=== PATIENT | female | born 2000 | race Hispanic/Latino ===

== ENCOUNTER 2018-06-29 03:19 | Inpatient (IN) | payer OTHER ==
[2018-06-29] MEDS ORDERED: MINERAL OIL PO PRN (05:14)
[2018-06-29] MEDS ORDERED: BRETHINE IVP PRN (05:14)
[2018-06-29] MEDS ORDERED: BRETHINE SUB-Q PRN (05:14)
[2018-06-29] MEDS ORDERED: XYLOCAINE 2% INFILTRATI ONE (05:14)
--- NOTE | 2018-06-29 05:23 | Ultrasound Report ---
PROCEDURE: US OB LIMITED TECHNIQUE: A limited OB sonogram was obtained for evaluation of the MARTHA. HISTORY: MARTHA COMPARISONS: 06/20/2018 FINDINGS: The MARTHA is 6.0 which is decreased. The fetus is in cephalic presentation. The heart rate is 148 BPM. The placenta is along the left lateral wall and is grade 2. IMPRESSION: MARTHA is 6.0 consistent with oligohydramnios. On the previous study of 06/21/2018 was 12.7 which is norm al.. Cephalic presentation. The heart rate is 148 BPM. This document is electronically signed by Steve Wells MD., June 29 2018 05:21:51 AM ET
[2018-06-29] MEDS ORDERED: SUBLIMAZE IV ONE (05:30)
[2018-06-29 05:50] LABS: Hematocrit 34.7 % (30.3-42.9); Hemoglobin 11.5 gm/dl (10.1-14.3); Mean Corpuscular HGB Conc 33 % (30-34); Mean Corpuscular Volume 85 fl (79-97); Platelet Count 187 K/mm3 (140-440); Red Blood Count 4.09 M/mm3 (3.65-5.03); Red Cell Distribution Width 16.2 % (13.2-15.2)
[2018-06-29] MEDS: LACTATED RINGERS 1,000 ML IV SCH ×5 (06:04→15:51)
--- NOTE | 2018-06-29 06:18 | History and Physical Report ---
History of Present Illness Date of examination: 06/29/18 Chief complaint: contractions and SROM History of present illness: EDC Calculations LMP: 07/07/2018 Past History : 1 Past Medical History: Scoliosis Past Medical History Social Hx: Patient is single Smoking History: Patient has never smoked. Infection History Hx of STD: none Varicella/Chicken Pox Status: Immunized TB Risk: no Genetic History Congenital Heart Defect: Mom: no Dad: no Faisal Disease: Mom: no Dad: no Thalassemia Mom: no Dad: no Neural Tube Defect Mom: yes Dad: no Comments: 1st cousin Spinda Bifida Down's Syndrome Mom: no Dad: no Ernst-Sachs Mom: no Dad: no Sickle Cell Disease/Trait Mom: no Dad: no Hemophilia Mom: no Dad: no Muscular Dystrophy Mom: no Dad: no Cystic Fibrosis Mom: no Dad: no Clayton Chorea Mom: no Dad: no Mental Retardation Mom: no Dad: no Fragile X Mom: no Dad: no Other Genetic/Chromosomal Disorder Mom: no Dad: no Child w/other defect Mom: no Dad: no Enviromental Exposures Enviromental Exposures Reviewed Xray Exposure: no Medication, drug, or alcohol use since LMP: no Chemical/Other Exposure: no Exposure to Cat Liter: no Hx of Parvovirus (Fifth Disease): yes 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: daycare Active Medications: PLUS 27-1 MG ORAL TABLET ( VIT-FE FUMARATE-FA) 1 po daily Current Allergies: No known allergies Past History Past Medical History: other (see HPI) Past Surgical History: other (see HPI) 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) Family/Genetic History: other (see HPI) - Obstetrical History Expected Date of Delivery: 07/07/18 Actual Gestation: 38 Week(s) 6 Day(s) : 1 Para: 0 Hx # Term Pregnancies: 0 Number of Pregnancies: 0 Spontaneous Abortions: 0 Induced : 0 Number of Living Children: 0 Medications and Allergies Allergies Allergy/AdvReac Type Severity Reaction Status Date / Time No Known Allergies Allergy Verified 06/20/18 18:08 Active Meds: Active Medications Ephedrine Sulfate (Ephedrine Sulfate) 10 mg IV Q2M PRN PRN Reason: Hypotension Lactated Ringer's (Lactated Ringers) 1,000 mls @ 125 mls/hr IV DIRECT ELSIE Last Admin: 06/29/18 06:04 Dose: 125 mls/hr Documented by: Oxytocin/Sodium Chloride (Pitocin/Ns 20 Unit/1000ml Drip) 20 units in 1,000 mls @ 125 mls/hr IV DIRECT ELSIE Mineral Oil (Mineral Oil) 30 ml PO QHS PRN PRN Reason: Constipation Terbutaline Sulfate (Brethine) 0.25 mg SUB-Q ONCE PRN PRN Reason: Hyperstimulation/Hypertonicity Terbutaline Sulfate (Brethine) 0.25 mg IVP ONCE PRN PRN Reason: Hyperstimulation/Hypertonicity Review of Systems All systems: negative - Vital Signs Vital signs: Vital Signs Pulse BP Pulse Ox 68 135/82 98 06/29/18 03:39 06/29/18 03:39 06/29/18 03:39 Temp Pulse Resp BP Pulse Ox 87 133/86 96 06/29/18 05:54 06/29/18 05:25 06/29/18 05:54 - Physical Exam Breasts: Positive: normal Cardiovascular: Regular rate Lungs: Positive: Clear to auscultation, Normal air movement Abdomen: Positive: normal appearance, soft Genitourinary (Female): Positive: normal external genitalia, normal perenium Vulva: both: normal Vagina: Positive: normal moisture (clear fluid) Uterus: Positive: normal size, normal contour Anus/Rectum: Positive: normal perianal skin Extremities: Positive: normal Deep Tendon Reflex Grade: Normal +2 - Obstetrical FHR: auscultation normal Uterine Contraction Monitor Mode: External Cervical Dilatation: 3 Cervical Effacement Percentage: 90 station: -1 Uterine Contraction Frequency (min): 2-3 Uterine Contraction Duration: 60 Uterine Contraction Pattern: Regular Uterine Tone Measurement Phase: Contraction Uterine Contraction Intensity: Moderate Results Result Diagrams: 06/29/18 05:30 Abnormal lab results 06/29/18 Range/Units 05:30 WBC 13.3 H (4.5-11.0) K/mm3 RDW 16.2 H (13.2-15.2) % All other labs normal. Assessment and Plan 17 y/o @ 38+1 weeks arrived with c/o ctx and SROM occurring @ 0130 - nitrizine equivocal, MARTHA 6. GBS negative. Admission orders in EMR. - Patient Problems (1) 38 weeks gestation of Current Visit: Yes Status: Acute (2) SROM (spontaneous rupture of membranes) Current Visit: Yes Status: Acute Plan to address problem: Limit SVE
--- NOTE | 2018-06-29 07:59 | Anesthesia Consultation ---
Anesthesia Consult and Med Hx - Airway Anesthetic Teeth Evaluation: Good ROM Head & Neck: Adequate Mental/Hyoid Distance: Adequate Mallampati Class: Class I Intubation Access Assessment: Good - Pulmonary Exam CTA: Yes - Cardiac Exam Cardiac Exam: RRR - Pre-Operative Health Status ASA Pre-Surgery Classification: ASA2 Proposed Anesthetic Plan: Epidural (scoliosis) - Pulmonary Hx Asthma: No - Cardiovascular System Hx Hypertension: No - Central Nervous System Hx Seizures: No Hx Psychiatric Problems: No - Endocrine Hx Renal Disease: No Hx Hypothyroidism: No Hx Hyperthyroidism: No - Hematic Hx Anemia: No Hx Sickle Cell Disease: No - Other Systems Hx Alcohol Use: No
--- NOTE | 2018-06-29 07:59 | Anesthesia Day of Surgery ---
Anesthesia Day of Surgery - Day of Surgery Patient Examined: Yes Patient H&P Reviewed: Yes Patient is NPO: Yes Beta Blockers: No Cardiac Clearance: No Pulmonary Clearance: No Ehsan's Test: N/A
[2018-06-29] MEDS ORDERED: MARCAINE 0.25% INFILTRATI ONE (08:04)
--- NOTE | 2018-06-29 08:31 | Progress Note ---
Assessment and Plan 17 y/o at term admitted for SROM and labor. Patient reports strong painful contractions, palpating moderate. Category 1 tracing at this time. SVE 4.5/100/- 1. Anesthesia at bedside ready to initiate epidural per patient request. RN to recheck SVE in 2 hrs. Will consider pitocin dependent on repeat exam. Continue to monitor. Anticipate . Subjective - Subjective Date of service: 06/29/18 Principal diagnosis: SROM, labor Patient reports: loss of fluid (clear), vaginal bleeding (small amount of bloody show noted on chux and on exam glove), movement normal, contractions Objective - Vital Signs Vital Signs: Vital Signs - 12hr 06/29/18 06/29/18 06/29/18 03:39 03:44 03:49 Temperature Pulse Rate 68 82 78 Respiratory Rate Blood Pressure 135/82 O2 Sat by Pulse 98 96 96 Oximetry 06/29/18 06/29/18 06/29/18 03:54 03:59 04:04 Temperature Pulse Rate 80 61 71 Respiratory Rate Blood Pressure O2 Sat by Pulse 97 98 97 Oximetry 06/29/18 06/29/18 06/29/18 04:09 04:13 04:14 Temperature Pulse Rate 75 65 69 Respiratory Rate Blood Pressure O2 Sat by Pulse 98 94 95 Oximetry 06/29/18 06/29/18 06/29/18 04:18 04:19 04:24 Temperature Pulse Rate 65 75 77 Respiratory Rate Blood Pressure O2 Sat by Pulse 94 98 97 Oximetry 06/29/18 06/29/18 06/29/18 04:29 04:30 04:34 Temperature Pulse Rate 71 80 67 Respiratory Rate Blood Pressure O2 Sat by Pulse 97 94 95 Oximetry 06/29/18 06/29/18 06/29/18 04:36 04:39 04:44 Temperature Pulse Rate 71 73 70 Respiratory Rate Blood Pressure O2 Sat by Pulse 94 96 96 Oximetry 06/29/18 06/29/18 06/29/18 04:49 04:54 04:59 Temperature Pulse Rate 60 75 75 Respiratory Rate Blood Pressure O2 Sat by Pulse 96 97 94 Oximetry 06/29/18 06/29/18 06/29/18 05:04 05:09 05:14 Temperature Pulse Rate 71 71 91 H Respiratory Rate Blood Pressure O2 Sat by Pulse 97 96 96 Oximetry 0406/29/18 06/29/18 05:24 05:25 05:29 Temperature Pulse Rate 89 71 66 Respiratory Rate Blood Pressure 133/86 O2 Sat by Pulse 97 85 Oximetry 06/29/18 06/29/18 06/29/18 05:34 05:37 05:39 Temperature Pulse Rate 94 H 82 95 H Respiratory Rate Blood Pressure O2 Sat by Pulse 94 94 95 Oximetry 06/29/18 06/29/18 06/29/18 05:44 05:49 05:54 Temperature Pulse Rate 87 86 87 Respiratory Rate Blood Pressure O2 Sat by Pulse 96 98 96 Oximetry 06/29/18 06/29/18 06/29/18 06:19 06:23 08:16 Temperature 98.5 F Pulse Rate 71 122 H Respiratory 22 Rate Blood Pressure 113/81 O2 Sat by Pulse 95 Oximetry - Exam Breasts: normal Cardiovascular: Regular rate, Normal S1, Normal S2 Lungs: Clear to auscultation Abdomen: Present: normal appearance, soft. Absent: distention, tenderness Vulva: both: normal Uterus: Present: normal FHR: auscultation normal Uterine Contraction Monitor Mode: External Cervical Dilatation: 4.5 Cervical Effacement Percentage: 100 station: -1 Uterine Contraction Frequency (min): 2-4 Uterine Contraction Duration: 60-80 Uterine Contraction Pattern: Regular Uterine Tone Measurement Phase: Contraction Uterine Contraction Intensity: Moderate Extremities: normal Deep Tendon Reflex Grade: Normal +2 - Labs Labs: Abnormal Labs 06/29/18 05:30 WBC 13.3 H RDW 16.2 H Laboratory Results - last 24 hr 06/29/18 06/29/18 05:30 05:30 WBC 13.3 H RBC 4.09 Hgb 11.5 Hct 34.7 MCV 85 MCH 28 MCHC 33 RDW 16.2 H Plt Count 187 Blood Type O NEGATIVE Antibody Screen Positive
[2018-06-29] MEDS: fentaNYL-BUPIV 2 MCG/ML-0.125% 200 MCG/100 ML BAG EPIDURAL SCH ×2 (09:20→16:58)
[2018-06-29] MEDS ORDERED: NARCAN 2 MG/2 ML IV PRN (09:30)
--- NOTE | 2018-06-29 12:45 | Event Note ---
Date: 06/29/18 As per RN exam is unchanged. Will start pitocin at time. Plan of care d/w pt and questions were addressed and answered.Plan of care also d/w RN Parvin taking care of the pt.
[2018-06-29] MEDS ORDERED: PITOCin/NS 30 UNIT/500ML 30 UNITS/500 ML BAG IV SCH (13:00)
--- NOTE | 2018-06-29 16:39 | Event Note ---
Date: 06/29/18 (9170 (late entry)) Called RN to check patient status. RN reports that patient BP dropped to 80s/50s post epidural, back to baseline BP with LR bolus and ephedrine.RN also reports recurrent late decerations during this episode, which required her to discontinue pitocin. She reports that the BP and the FHTs are now recovered, back to baseline, category 1 tracing at this time. SVE is now 6/100/0. She will restart pitocin per order. Dr. Sullivan made aware. RN to call with any other decelerations noted or if pitocin requires d/c.
[2018-06-29] MEDS ORDERED: XYLOCAINE 2%/ EPI 1:200,000 INFILTRATI ONE (17:14)
[2018-06-29] MEDS: PITOCin/NS 20 UNIT/1000ML DRIP 20 UNITS/1,000 ML BAG IV SCH ×2 (18:16→19:30)
--- NOTE | 2018-06-29 18:48 | Procedure Note ---
OB Delivery Note - Delivery Date of Delivery: 06/29/18 Surgeon: JD NICHOLS Estimated blood loss: 300cc - Vaginal Delivery presentation: vertex Delivery position: OA Intrapartum events: none Delivery induction: none Delivery augmentation: pitocin Delivery monitor: external FHT, external uterine Route of delivery: Delivery placenta: spontaneous (intact) Delivery cord: 3 umbilical vessels Episiotomy: midline (partial not completely cut) Delivery laceration: 2nd degree Delivery repair: vicryl (3-0) Anesthesia: epidural Delivery comments: Pt progressed to c/c/vtx/3+ and with 20 min of pushing delivery as above. No shoulder dystocia. Cord was around right ankle of baby and reduced after delive ry. was placed on maternal abdomen and cord cut after pulsation had stopped. Cord blood collected. Placenta delivered spontaneously intact. MLE was w/o extension and repaired in usual fashion. Mother and stable in LDR. - Infant A at 1 minute: 8 at 5 minutes: 9 Infant Gender: Female (6lbs 40z)
[2018-06-29] MEDS ORDERED: LANSINOH TP PRN (20:54)
[2018-06-29] MEDS ORDERED: BENADRYL PO PRN (20:54)
[2018-06-29] MEDS ORDERED: PHENERGAN PO PRN (20:54)
[2018-06-29] MEDS ORDERED: DULCOLAX PR PRN (20:54)
[2018-06-29] MEDS ORDERED: TYLENOL PO PRN (20:54)
[2018-06-29] MEDS ORDERED: PHENERGAN PR PRN (20:54)
[2018-06-29] MEDS ORDERED: TUCKS PAD TP PRN (20:54)
[2018-06-29] MEDS ORDERED: MILK OF MAGNESIA PO PRN (20:54)
[2018-06-29] MEDS ORDERED: ZOFRAN IV PRN (20:54)
[2018-06-29] MEDS ORDERED: SODIUM CHLORIDE FLUSH SYRINGE 10 ML IV NR (21:00)
[2018-06-30] MEDS ORDERED: AMMONIA INHALANT IH ONE ×2 (01:15→10:30)
[2018-06-30 08:59] LABS: Hematocrit 26.5 % (30.3-42.9); Hemoglobin 8.7 gm/dl (10.1-14.3)
[2018-06-30] MEDS: IBUPROFEN PO SCH ×3 (09:00→21:32)
--- NOTE | 2018-06-30 09:28 | Progress Note ---
Assessment and Plan PPD1 s/p . Patient reports feeling well, no complaints. Fundus is firm, ML, U/1. Vaginal bleeding is small. Patient denies any heavy bleeding or large blood clots. Reports pain is well controlled with mortin. She is , reports going well, no breast complaints. VSSAF. Awaiting post delivery H&H results. Spoke with lab r/t rhogam workup, they report they are running it now, will send rhogam up for administration as infant is + blood type. RN is aware to give prior to discharge. Will continue to monitor throughout the day and consider discharge this evening dependent on assessment, VS, and her desires. Subjective - Subjective Date of service: 06/30/18 Principal diagnosis: PPD 1 s/p Patient reports: appetite normal, voiding normally, pain well controlled, ambulating normally Roland: doing well, nursing well Objective - Vital Signs Latest vital signs: Vital Signs Temp Pulse Resp BP Pulse Ox 06/30/18 04:35 98.6 F 74 16 114/69 97 06/29/18 19:53 78 126/76 06/29/18 19:39 76 133/76 06/29/18 19:23 93 H 127/86 06/29/18 19:08 97 H 122/87 06/29/18 18:53 121 H 126/89 06/29/18 18:38 121/83 06/29/18 18:23 114 H 137/71 06/29/18 18:21 107 H 122/85 06/29/18 18:09 135 H 99 06/29/18 18:08 111 H 119/72 06/29/18 18:04 124 H 98 06/29/18 17:53 77 150/79 06/29/18 17:38 73 133/83 06/29/18 17:25 77 135/84 06/29/18 17:08 75 121/73 06/29/18 16:54 74 123/75 06/29/18 16:38 66 109/66 06/29/18 16:20 86 98 06/29/18 16:15 80 97 06/29/18 16:10 69 97 06/29/18 16:08 62 119/67 06/29/18 16:05 71 97 06/29/18 16:00 76 99 06/29/18 15:55 84 96 06/29/18 15:53 78 127/68 06/29/18 15:50 86 97 06/29/18 15:45 98.8 F 93 H 96 06/29/18 15:40 74 97 06/29/18 15:38 70 119/68 06/29/18 15:35 80 98 06/29/18 15:30 85 98 06/29/18 15:25 76 98 06/29/18 15:22 73 120/69 06/29/18 15:20 71 97 06/29/18 15:18 60 119/64 06/29/18 15:15 61 98 06/29/18 15:10 71 98 06/29/18 15:05 71 96 06/29/18 15:04 68 83/50 06/29/18 15:01 117 H 96/53 06/29/18 15:00 78 100 06/29/18 14:55 89 97 06/29/18 14:50 81 98 06/29/18 14:45 89 98 06/29/18 14:31 108 H 114/73 06/29/18 14:30 98.9 F 06/29/18 14:01 103 H 120/77 06/29/18 13:31 96 H 116/74 06/29/18 13:02 98 H 113/69 06/29/18 12:31 67 101/61 06/29/18 12:03 60 92/52 06/29/18 11:51 63 98 06/29/18 11:46 70 97 06/29/18 11:45 67 117/71 06/29/18 11:41 72 97 06/29/18 11:36 74 96 06/29/18 11:31 72 97 06/29/18 11:30 98 F 69 121/75 06/29/18 11:26 71 96 06/29/18 11:21 76 96 06/29/18 11:16 74 128/74 96 06/29/18 11:11 72 96 06/29/18 11:06 80 96 06/29/18 11:01 76 96 06/29/18 11:00 66 119/69 06/29/18 10:56 72 96 06/29/18 10:51 67 95 06/29/18 10:46 67 95 06/29/18 10:45 72 115/67 06/29/18 10:41 76 96 06/29/18 10:36 85 96 06/29/18 10:31 64 110/60 96 06/29/18 10:26 71 95 06/29/18 10:21 66 96 06/29/18 10:17 62 130/64 06/29/18 10:16 63 96 06/29/18 10:11 64 96 06/29/18 10:06 70 96 06/29/18 10:01 66 97 06/29/18 10:00 72 111/72 06/29/18 09:56 68 97 06/29/18 09:51 73 97 06/29/18 09:46 72 97 06/29/18 09:45 73 120/78 06/29/18 09:41 76 97 06/29/18 09:37 99.2 F 06/29/18 09:36 92 H 97 06/29/18 09:31 68 96 Intake and Output 06/29/18 06/30/18 06/30/18 23:59 07:59 15:59 Intake Total 166.634 Balance 166.634 Intake: IV 166.634 PITOCin/NS 20 UNIT/1000ML 154.167 DRIP 20 units In 1,000 ml @ 125 mls/hr IV DIRECT ELSIE Rx#:[id number] PITOCin/NS 30 UNIT/500ML 12.467 30 units In 500 ml @ Titrate IV DIRECT ELSIE Rx#:[id number] Other: Estimated Blood Loss 200 - Exam Breasts: Present: normal Cardiovascular: Present: Regular rate, Normal S1, Normal S2 Lungs: Present: Clear to auscultation Abdomen: Present: normal appearance, soft, normal bowel sounds Vulva: both: normal Uterus: Present: normal, firm Extremities: Present: normal Incision: Present: normal, dry, intact
[2018-06-30] MEDS: COLACE PO SCH ×2 (18:37→21:32)
[2018-06-30] MEDS: FEOSOL PO SCH ×2 (18:37→21:32)
[2018-06-30] MEDS ORDERED: BOOSTRIX IM ONE (20:54)
[2018-07-01] MEDS: IBUPROFEN PO SCH ×2 (03:55→12:43)
[2018-07-01] MEDS: FEOSOL PO SCH (09:49)
[2018-07-01] MEDS: COLACE PO SCH (09:49)
--- NOTE | 2018-07-01 11:53 | Discharge Summary ---
Providers - Providers Date of Admission: 06/29/18 06:45 Date of discharge: 07/01/18 Attending physician: TABBY DUARTE Primary care physician: TABBY DUARTE Hospitalization Reason for admission: active labor, IUP at term Delivery: Episiotomy: none Laceration: none Other procedures: none complications: none Discharge diagnosis: IUP at term delivered [place] baby: female Hospital course: Asymptomatic anemia, no problems. No complaints, minimal bleeding, fundus firm, at umbilicus, NT exts 1+ edema, NT. She desires d/c home Condition at discharge: Good Disposition: DC-01 TO HOME OR SELFCARE - Discharge Diagnoses (1) (spontaneous vaginal delivery) Status: Acute (2) Anemia Status: Acute Qualifiers: Other causes of anemia: acute posthemorrhagic Comment: asymptomatic Plan - Provider Discharge Summary Activity: no sex for 6 weeks, no heavy lifting 4 weeks, no strenuous exercise Diet: routine Instructions: routine Additional instructions: [] Smoking cessation referral if applicable(refer to patient education folder for contact #) [] Refer to [facility] Booklet Call your doctor immediately for: * Fever > 100.5 * Heavy vaginal bleeding ( >1 pad per hour) * Severe persistent headache * Shortness of breath * Reddened, hot, painful area to leg or breast * Drainage or odor from incision. * Keep incision clean and dry at all times and follow doctor's instructions re garding bathing/showering - Follow up plan Follow up: TABBY DUARTE MD [Primary Care Provider] - (4-6 weeks)
[2018-07-01 12:51] VITALS: BP 134/82
== END 2018-07-01 14:25 | disposition home or self-care (01) | DRG 775 ==
LOC: TRG 03:19 → LD 06:45 → TRG 06:45 → OB 21:11
PROVIDERS: ADMIT Obstetrics & Gynecology; ATTEND Obstetrics & Gynecology
PROC: 10E0XZZ Delivery of Products of Conception, External Approach (ICD-10-PCS; principal; 2018-06-29)
PROC: 0KQM0ZZ Repair Perineum Muscle, Open Approach (ICD-10-PCS; 2018-06-29)
PROC: 3E0R3BZ Introduction of Anesthetic Agent into Spinal Canal, Percutaneous Approach (ICD-10-PCS; 2018-06-29)
PROC: 00HU33Z Insertion of Infusion Device into Spinal Canal, Percutaneous Approach (ICD-10-PCS; 2018-06-29)
PROC: 0W8NXZZ Division of Female Perineum, External Approach (ICD-10-PCS; 2018-06-29)
PROC: 3E0334Z Introduction of Serum, Toxoid and Vaccine into Peripheral Vein, Percutaneous Approach (ICD-10-PCS; 2018-06-30)
DX: O99.02 Anemia complicating childbirth (principal); D62 Acute posthemorrhagic anemia; O70.1 Second degree perineal laceration during delivery; Z37.0 Single live birth; Z3A.38 38 weeks gestation of pregnancy
CPT/HCPCS: 36415; 76815; 85014; 85018; 85027; 85461; 86592; 86850; 86870; 86900; 86901; G0378; J2590; J2790; J3010; J7120